=== PATIENT | female | born 1995 | race Hispanic/Latino ===

== ENCOUNTER 2016-06-11 18:45 | Emergency (ER) | payer MEDICAID ==
[2016-06-11 18:51] VITALS: BP 102/57; PULSE 84; RESP 18; O2SAT 99
[2016-06-11] MEDS ORDERED: CITA20TA11 PO (19:29)
[2016-06-11] MEDS ORDERED: CRB400TCR PO (19:29)
--- NOTE | 2016-06-11 19:34 | ED.REPORT ---
HPI-Preg Under 20 Weeks Date of Service Jun 11, 2016 ED Provider: Jose R De DO 21 y/o female with a history of seizure on 400mg Tegretol daily (Pt had 1 seizure in January with no other seizures before or after) who presents to the ED complaining of vaginal bleeding and abdominal cramping onset yesterday. Pt is 6 weeks , . LNMP Apr 02. Pt reports that she is bleeding less than she does during her period. Pt has been bleeding through 2-3 pads per day. O-. Pt last had intercourse 4 days ago. Nursing Notes Stated Complaint: 10 WEEK BLEEDING AND ABDOMINAL PAIN Chief Complaint: & Delivery Nursing Notes Reviewed: Yes Allergies: Coded Allergies: No Known Allergies (Unverified , 06/11/16) Scheduled Carbamazepine (Tegretol Xr) 400 Mg Tabcr 400 MG PO DAILY Citalopram (Citalopram) 20 Mg Tablet 20 MG PO DAILY General Time Seen by Provider: 19:33 Chief Complaint Vaginal bleeding Context: : ... (1) Hx Obtained From: Patient Arrived By: Walk-in Onset Occurred: Yesterday Symptom Duration: Since onset Location: : Epigastric Quality: Painful Severity: Current: Mild Severity: Maximum: Mild Recent Healthcare: No recent doctor visit Similar Sx Previous: No Past Medical History Past Medical History Seizures Past Surgical History none reported Smoking History Never Smoker Social History Alcohol Use: Denies alcohol use Other Social History: Good social support Ambulatory Status Independent Review of Systems Constitutional: Denies: Fever GI: Reports: Abdominal pain, Denies: Diarrhea, Vomiting Female: Reports: , Denies: Dysuria, Vaginal bleeding - abnl, Vaginal discharge Complete sys rev & neg: except as marked. Physical Exam Initial Vital Signs Vital Signs (First) Date Time Temp Pulse Resp B/P Pulse Ox O2 Delivery O2 Flow Rate FiO2 06/11/16 18:51 36.2 84 18 102/57 99 Room Air Initial VS: Reviewed, Vital signs normal Head / Eyes: Atraumatic, Normocephalic, PERRL ENT: Mucous membranes moist, Conjunctiva normal, No scleral icterus Neck: Supple, Full range of motion Respiratory: Breath sounds normal, Clear to auscultation, No respiratory distress Cardiovascular: Regular rate & rhythm, Heart sounds normal, Intact distal pulses Extremities: Vascular intact, Neuro intact, No swelling, No tenderness Skin: Warm, Dry, No cyanosis Neurologic: Alert, Oriented, Nonfocal Psychiatric: Mood/affect normal, Behavior normal, Normal thought content General/Constitutional: Awake, Alert, Cooperative, Not toxic appearing Abdomen: Atraumatic, Soft Interpretation & Diagnostics Lab Results Interpretation Result Diagram: 06/11/16192706/11/161927 Test 06/11/16 19:28 06/11/16 20:47 White Blood Count 6.1th/mm3 (3.8-10.1) Red Blood Count 3.98mil/mm3 (3.90-5.20) Hemoglobin 12.7g/dL (12.0-15.6) Hematocrit 37.3% (35.0-46.0) Mean Corpuscular Volume 93.7fL (81-100) Mean Corpuscular Hemoglobin 31.9pg (27.0-35.0) Mean Corpuscular Hemoglobin Concent 34.0% (32.0-37.0) Red Cell Distribution Width 11.6% (12.3-15.4) Platelet Count 201bil/L (150-400) Sodium Level 136mEq/L (134-144) Potassium Level 4.1mEq/L (3.5-5.2) Chloride Level 101mEq/L (97-108) Carbon Dioxide Level 21mmol/L (18-29) Blood Urea Nitrogen 12mg/dL (6-20) Creatinine 0.50mg/dL (0.57-1.00) Estimat Glomerular Filtration Rate 221mL/min (>59) Glucose Level 100mg/dL (60-99) Calcium Level 9.2mg/dL (8.5-10.1) Total Bilirubin 0.2mg/dL (0.0-1.2) Aspartate Amino Transf (AST/SGOT) 21U/L (0-50) Alanine Aminotransferase (ALT/SGPT) 18U/L (0-32) Alkaline Phosphatase 67U/L (25-150) Total Protein 7.1g/dL (6.4-8.4) Albumin 4.5g/dL (3.4-5.0) HCG Beta Subunit [id number]/mL Hold Nathan Top Tube Received (Received) Hold Urine Received (Received) General Lab Results Interp 1: Labs reviewed US Focused OB IMPRESSION: 1. Single living intrauterine with calculated gestational age of 6 weeks 3 days corresponding to an estimated delivery date of 02/02/17. The findings are discordant with the patient's estimated delivery date by LMP of 01/07/17. 2. Yolk sac not well-visualized. Recommend clinical followup and repeat study if indicated. Dictated by: Konstantin Galo M.D. on 06/11/2016 at 20:40 Exam Interpreted by: Radiologist Re-Eval/Medical Decision Med Decision/Clinical Course Threatened miscarriage in early , not actively bleeding to any significance. It should be noted that RhoGAM was given, reassuring pelvic ultrasound. It should be noted that verbally we discussed discuss continuing the Tegretol although I did not specifically write this on her discharge summary. She is strongly encouraged to follow-up with [facility] in 48 hours or return to ER as needed for worsening or concerning symptoms. Re-Evaluation/Progress : Re-Evaluation/Progress Note: Updated pt of labs and imaging results. Discussed plan for discharge and follow up. All questions addressed. Counseled Regarding: Diagnosis, Lab results, Need for follow-up, When/why to return to ED Discharge & Departure Primary Impression: Threatened miscarriage Disposition: Home Discharge Condition All VS Reviewed: Yes Condition: Stable Patient Instructions: Threatened Miscarriage (ED) Your ultrasound today showed a 6 week via ultrasound. You recieved rhogham today. Call the consulting technical manager tomorrow to schedule an appointment for next Thursday. Until you are seen by an consulting technical manager stay on pelvic rest. No vaginal penetration or lifting over 5 pounds. Return for severe pain, fever or severe bleeding. You can take Tylenol for pain. Referrals: Hamzah Chilel MD Attestation Portions of this note were transcribed by Eryn Kwon. I, (Dr. De) personally performed the history, physical exam and medical decision-making; I reviewed and confirmed the accuracy of the information in the transcribed note. Signed by: Eryn Kwon. [place], 06/11/2016, [id number] copies to: Hamzah Chilel MD, Timothy Silvino MARTINEZ Jun 11, 2016 19:34 Chuck Hobson Jun 11, 2016 19:50 Eryn Kwon Jun 11, 2016 21:44
[2016-06-11 19:38] LABS: Mean Corpuscular Hemoglobin 31.9 pg (27.0-35.0); Mean Corpuscular Volume 93.7 fL (81-100)
[2016-06-11] MEDS ORDERED: Rho(D) Immune Globulin 50 mCg Syringe IM ONE (20:25)
--- NOTE | 2016-06-11 20:56 | DRSVH ---
PROCEDURE: US OB<14 WKS INDICATIONS: early bleeding/ pain, confirm IUP OUTSIDE/PRIOR DATING DATA: Last menstrual period (LMP): 04/02/16. LMP-based estimated date of delivery (TRAY): 01/07/17. TECHNIQUE: Real-time scanning was performed of the fetus and maternal pelvic organs, with image documentation. COMPARISON: None. FINDINGS: Embryo: There is an intrauterine gestational sac demonstrated. There is a small pole with a cr own-rump length of 5 mm corresponding to gestational age of 6 weeks 2 days. There is heart mot ion with a rate of 116 beats per minute. A yolk sac is not well-visualized. Measurement variability in dating: +/- 4 weeks by LMP, +/- 7 days by mean sac diameter (use before 6 weeks gestation if crown-rump length not able to be measured), +/- 5 days by crown-rump length (6-12 weeks gestation). Maternal organs: Ovaries measure up to 3.8 x 1.7 x 1.7 cm on the right and 2.9 x 2.0 x 0.9 cm on the left. There is a small hypoechoic cyst in the left ovary measuring up to 1.6 cm. There is an intra mural fibroid within the lower uterine segment measuring up to 2.7 x 2.4 x 3.1 cm. Limited images th rough the kidneys demonstrate no hydronephrosis. IMPRESSION: 1. Single living intrauterine with calculated gestational age of 6 weeks 3 days correspond ing to an estimated delivery date of 02/02/17. The findings are discordant with the patient's estima antonio delivery date by LMP of 01/07/17. 2. Yolk sac not well-visualized. Recommend clinical followup and repeat study if indicated. Dictated by: Konstantin Galo M.D. on 06/11/2016 at 20:40 Approved by: Konstantin Galo M.D. on 06/11/2016 at 20:54
[2016-06-11 21:43] VITALS: BP 101/46; PULSE 75; RESP 16; O2SAT 100
== END 2016-06-11 21:43 | disposition home or self-care (01) ==
LOC: SED 18:45
DX: O20.0 Threatened abortion (principal); Z3A.01 Less than 8 weeks gestation of pregnancy
CPT/HCPCS: 36415; 76801; 80053; 84702; 85027; 96372; 99285; J2788